=== PATIENT | female | born 1955 | race Caucasian/White ===

== ENCOUNTER 2017-01-13 13:26 | Emergency (ER) | payer BC ==
[2017-01-13 13:59] VITALS: BP 164/98
--- NOTE | 2017-01-13 14:55 | EDM.PDOC ---
ED HPI GENERAL MEDICAL PROBLEM - General Chief Complaint: Respiratory Problem Stated Complaint: COUGH,SWEATS Time Seen by Provider: 01/13/17 14:53 Source of Information: Reports: Patient History Limitations: Reports: No Limitations - History of Present Illness INITIAL COMMENTS - FREE TEXT/NARRATIVE: pt has been coughing markedly. She has not been raising alot of sputum. She is short of breath with the hard coughing. Onset: gradual Duration: Day(s):, Getting worse Location: Reports: chest Associated Symptoms: Reports: cough, diaphoresis, fever/chills, weakness chest with cough Pain Score (Numeric/FACES): 0 - Related Data Allergies Allergy/AdvReac Type Severity Reaction Status Date / Time No Known Allergies Allergy Verified 06/17/14 08:22 Home Meds: Home Meds Acetaminophen [Tylenol] 1,000 mg PO Q4H 01/13/17 [History] Cyclobenzaprine HCl [Cyclobenzaprine HCl] 01/13/17 [History] Furosemide [Furosemide] 20 gm PO DAILY 01/13/17 [History] Metoprolol Succinate 100 mg PO DAILY 01/13/17 [History] amLODIPine Besylate [Amlodipine Besylate] 5 mg PO DAILY 01/13/17 [History] Past Medical History 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: Musculoskeletal History: Reports: Fibromyalgia, Other (see below) Other Musculoskeletal History: VERTIGO Neurological History: Reports: Migraines Psychiatric History: Reports: Anxiety Hematologic History: Reports: Anemia - Past Surgical History Cardiovascular Surgical History: Reports: Other (see below) Other Cardiovascular Surgeries/Procedures: angiogram GI Surgical History: Reports: Appendectomy Social & Family History - Tobacco Use Smoking Status *Q: Never Smoker - Caffeine Use Caffeine Use: Reports: Coffee - Recreational Drug Use Recreational Drug Use: No ED ROS GENERAL - Review of Systems Review Of Systems: See Below Constitutional: Reports: Fever, Chills, Malaise, Diaphoresis HEENT: Reports: Other ( SLIGHT SINUS CONGESTION) Respiratory: Reports: Wheezing, Cough Cardiovascular: Reports: No Symptoms Endocrine: Reports: No Symptoms GI/Abdominal: Reports: No Symptoms : Reports: No Symptoms Musculoskeletal: Reports: No Symptoms Skin: Reports: No Symptoms ED EXAM, GENERAL - Physical Exam Exam: See Below Free Text/Narrative:: PT ARRIVED WITH A SEVERE COUGH AND BEING QUITE WHEEZY. Exam Limited By: No Limitations General Appearance: Alert, Mild Distress Ears: Normal TMs Nose: Normal Inspection Throat/Mouth: Normal Inspection Head: Atraumatic Neck: Normal Inspection Respiratory/Chest: Decreased Breath Sounds, Wheezing Cardiovascular: Regular Rate, Rhythm GI/Abdominal: Soft, Non-Tender Rectal (Female) Exam: Deferred Back Exam: Normal Inspection Extremities: Normal Inspection Neurological: Alert, Oriented, Normal Cognition Psychiatric: Normal Affect Course - Vital Signs Last Recorded V/S: Last Vital Signs Temp 37.8 C 01/13/17 14:05 Pulse 72 01/13/17 14:05 Resp 20 01/13/17 14:05 BP 164/98 H 01/13/17 14:05 Pulse Ox 98 01/13/17 14:05 - Orders/Labs/Meds Orders: Active Orders 24 hr Category Date Time Status RT Aerosol Therapy [RC] ASDIRECTED Care 01/13/17 15:36 Active Chest 2V [CR] Stat Exams 01/13/17 14:52 Taken Labs: Laboratory Tests 01/13/17 01/13/17 01/13/17 Range/Units 14:59 14:59 14:59 WBC 4.9 (4.5-11.0) K/uL RBC 4.44 (3.30-5.50) M/uL Hgb 13.7 (12.0-15.0) g/dL Hct 41.0 (36.0-48.0) % MCV 92 (80-98) fL MCH 31 (27-31) pg MCHC 33 (32-36) % Plt Count 161 (150-400) K/uL Neut % (Auto) 51 (36-66) % Lymph % (Auto) 31 (24-44) % [place] % (Auto) 15 H (2-6) % Eos % (Auto) 2 (2-4) % Baso % (Auto) 1 (0-1) % Sodium 139 L (140-148) mmol/L Potassium 4.1 (3.6-5.2) mmol/L Chloride 101 (100-108) mmol/L Carbon Dioxide 29 (21-32) mmol/L Anion Gap 13.1 (5.0-14.0) mmol/L BUN 21 H (7-18) mg/dL Creatinine 0.8 (0.6-1.0) mg/dL Est Cr Clr Drug Dosing 41.02 mL/min Estimated GFR (MDRD) > 60 (>60) Glucose 106 (74-106) mg/dL Calcium 8.4 L (8.5-10.1) mg/dL Total Bilirubin 0.3 (0.2-1.0) mg/dL AST 33 (15-37) U/L ALT 44 (12-78) U/L Alkaline Phosphatase 62 (46-116) U/L C-Reactive Protein 0.66 H (0.0-0.3) mg/dL Total Protein 7.7 (6.4-8.2) g/dL Albumin 3.8 (3.4-5.0) g/dL Globulin 3.9 H (2.3-3.5) g/dL Albumin/Globulin Ratio 1.0 L (1.2-2.2) Meds: Medications Discontinued Medications Generic Name Dose Route Start Last Admin Trade Name Freq PRN Reason Stop Dose Admin Albuterol 2.5 mg 01/13/17 15:36 01/13/17 15:43 Proventil Neb Soln NEB 01/13/17 15:37 2.5 mg ONETIME ONE Administration - Re-Assessments/Exams Free Text/Narrative Re-Assessment/Exam: 01/13/17 16:02 PT HAS A POSITIVE INFLU A, hER WBC IS LOW AND SHE HAS A CLEAR CHEST XRAY. Departure - Departure Time of Disposition: 16:03 Disposition: Home, Self-Care 01 Condition: fair Clinical Impression: Influenza A - Discharge Information Forms: ED Department Discharge Care Plan Goals: PUSH FLUIDS, COOL MIST HUMIDIFIER, ALBUTEROL INHALER 2 PUFS QID, SEND THE SMALL MOLDING FITTER HOME WITH HER, JARRELL AC 2 TSP Q6H PRN FOR COUGH. - My Orders Last 24 Hours: My Active Orders 01/13/17 14:52 Chest 2V [CR] Stat 01/13/17 15:36 RT Aerosol Therapy [RC] ASDIRECTED - Assessment/Plan Last 24 Hours: My Active Orders 01/13/17 14:52 Chest 2V [CR] Stat 01/13/17 15:36 RT Aerosol Therapy [RC] ASDIRECTED
[2017-01-13] MEDS ORDERED: Albuterol 0.083% 2.5 MG/3 ML Neb Soln NEB ONE (15:36)
--- NOTE | 2017-01-14 08:23 | CR ---
Chest 2V INDICATION: sob COMPARISON: None FINDINGS: Two views. Heart size normal. Lungs are clear. No infiltrate or pleural effusion. No si gns of pulmonary edema. IMPRESSION: Negative chest.
== END 2017-01-13 16:23 | disposition home or self-care (01) ==
LOC: JP.ED 13:26
DX: J10.1 Influenza due to other identified influenza virus with other respiratory manifestations (principal); F41.9 Anxiety disorder, unspecified; G43.909 Migraine, unspecified, not intractable, without status migrainosus; Z86.2 Personal history of diseases of the blood and blood-forming organs and certain disorders involving the immune mechanism; Z90.49 Acquired absence of other specified parts of digestive tract; Z79.899 Other long term (current) drug therapy
CPT/HCPCS: 36415; 71020; 71020-26; 80053; 85025; 86140; 87804; 94640; 99284